=== PATIENT | male | born 1995 | race Caucasian/White ===

== ENCOUNTER → 2021-12-14 | Outpatient (CLI) | payer OTHER ==
[2021-12-14 18:34] LABS: HEMOGLOBIN 15.5 gm/dl (14.0-17.5); RED BLOOD COUNT 4.74 M/UL (4.20-5.50); WHITE BLOOD COUNT 7.1 K/UL (4.5-11.0)
[2021-12-14 19:38] LABS: BUN/CREATININE RATIO 12 (0-10)
== END ==
LOC: RT 15:57
PROVIDERS: Emergency Medicine
DX: R07.89 Other chest pain (principal); R53.83 Other fatigue; R00.2 Palpitations
CPT/HCPCS: 36415; 71046; 80053; 82550; 84443; 85025; 85379; 93005